=== PATIENT | female | born 1965 | race Caucasian/White ===

== ENCOUNTER 2022-12-20 23:32 | Emergency (ER) | payer OTHER, SELFPAY ==
[2022-12-20 23:35] VITALS: BP 157/95; PULSE 91; RESP 20; TEMP 36.8; O2SAT 100
--- NOTE | 2022-12-21 02:05 | ED.DENTAL ---
HPI - Dental/Oral General Chief complaint: Dental/Oral <TUNDE Espñaa Last Filed: 12/21/22 02:54> Stated complaint: dental pain <TUNDE España Last Filed: 12/21/22 02:54> Time Seen by Provider: 12/21/22 01:20 <TUNDE España Last Filed: 12/21/22 02:54> Source: patient <TUNDE España Last Filed: 12/21/22 02:54> Mode of arrival: ambulatory <TUNDE España Last Filed: 12/21/22 02:54> Limitations: no limitations <TUNDE Espaañ Last Filed: 12/21/22 02:54> History of Present Illness HPI Narrative: This is a 57-year-old female who presents to the ED with chief complaints of a dental abscess. Patient states that she has had a lot of dental work done on the left upper premolar. She was given a prescription for Keflex 10 days ago by her oral surgeon for potential abscess. She states she finished that yesterday. She is concerned because she is having lymph node swelling in the neck and armpit. She also reports some pain in the left ear region. <TUNDE España Last Filed: 12/21/22 02:54> Related Data Allergies/adverse reactions: Allergies Allergy/AdvReac Type Severity Reaction Status Date / Time prednisone AdvReac Other Verified 12/20/22 23:40 <TUNDE España Last Filed: 12/21/22 02:54> Review of Systems Review of Systems: CONSTITUTIONAL: Denies fever, chills, or sweats. EYES: Denies visual changes, redness, or discharge. ENT: See HPI CARDIOVASCULAR: Denies chest pain, palpitations, or edema. RESPIRATORY: Denies cough or dyspnea. GASTROINTESTINAL: Denies abdominal pain, nausea, vomiting, or diarrhea. GENITOURINARY: Denies dysuria or hematuria. SKIN: Denies rash or itching. MUSCULOSKELETAL: Denies back pain, joint pain, or myalgia. NEUROLOGIC: Denies headache, numbness, dizziness, or weakness. PSYCHIATRIC: Denies anxiety or depression. <Carlo Paez PA-C - Last Filed: 12/21/22 02:54> Exam Narrative: GENERAL: Well-appearing, well-nourished, and in no acute distress. HEAD: Normocephalic, atraumatic. EYES: PERRLA and EOMI. ENT: Nares clear, no rhinorrhea or epistaxis. Mucous membranes moist. Oropharynx without tonsillar hypertrophy exudate or other lesions. Erythema noted to the left upper gums. NECK: Supple. No adenopathy or masses. CHEST: No respiratory distress. Clear to auscultation. No wheezes rales or rhonchi HEART: Regular rate and rhythm. No murmur heard. Normal peripheral pulses. ABDOMEN: Soft, nontender, nondistended, normal active bowel sounds. EXTREMITIES: Normal range of motion. No edema. SKIN: No palpable lymph nodes on my exam. Warm, dry, no rash. NEURO: Alert and oriented x3. No focal deficits. PSYCH: Normal mood and affect. <Carlo Paez PA-C - Last Filed: 12/21/22 02:54> Course WAX MACHINE OPERATOR/PA Physician Supervision This is a was performed by both a physician and an APC. I performed all aspects of the MDM as documented w/ the following additions: 57-year-old presenting with dental pain. No evidence of abscess or significant infection. Patient's antibiotics were upgraded. Instructed to follow up the dentist.All questions answered. Patient in agreement w/ disposition. <Elijah Olivas MD - Last Filed: 12/24/22 07:44> Vital Signs Vital signs: Vital Signs Temperature 98.2 F 12/20/22 23:35 Pulse Rate 91 12/20/22 23:35 Respiratory Rate 20 12/20/22 23:35 Blood Pressure 157/95 H 12/20/22 23:35 Pulse Oximetry 100 12/20/22 23:35 Oxygen Delivery Room Air 12/20/22 23:35 Temperature 98.2 F 12/20/22 23:35 Pulse Rate 91 12/20/22 23:35 Respiratory Rate 20 12/20/22 23:35 Blood Pressure 157/95 H 12/20/22 23:35 Pulse Oximetry 100 12/20/22 23:35 Oxygen Delivery Room Air 12/20/22 23:35 <Carlo Paez PA-C - Last Filed: 12/21/22 02:54> Vital Signs Temperature 98.2 F 12/20/22 23:35 Pulse Rate 91 12/20/22 23:35 Respiratory Rate 20
[2022-12-21] MEDS: AMOXICILLIN/CLAVULANATE K 875-125 MG TAB 1 TABLET PO (02:14)
== END 2022-12-21 02:22 | disposition home or self-care (01) ==
PROVIDERS: Emergency Provider Physician Assistant
DX: K08.89 Other specified disorders of teeth and supporting structures (principal)
CPT/HCPCS: 99283; A9270